=== PATIENT | female | born 1955 | race Hispanic/Latino ===

== ENCOUNTER 2020-09-03 08:19 | Outpatient (CLI) | payer MEDICARE | END 2020-09-03 08:20 | disposition home or self-care (01) | LOC: NAV RAD 08:19 | PROVIDERS: ATTEND Family Medicine | DX: M25.561 Pain in right knee (principal) ==

== ENCOUNTER 2022-04-07 12:56 | Outpatient (CLI) | payer OTHER | END 2022-04-07 12:57 | disposition home or self-care (01) | LOC: NAV RAD 12:56 | PROVIDERS: ATTEND Family Medicine | DX: S20.219A Contusion of unspecified front wall of thorax, initial encounter (principal); M25.521 Pain in right elbow | CPT/HCPCS: 71046 ==

== ENCOUNTER 2023-04-28 20:05 | Emergency (ER) | payer OTHER, MEDICAID | END 2023-04-28 21:05 | disposition home or self-care (01) | LOC: NAV ERS 20:05 | DX: S61.211A Laceration without foreign body of left index finger without damage to nail, initial encounter (principal); E11.9 Type 2 diabetes mellitus without complications; E78.00 Pure hypercholesterolemia, unspecified; I10 Essential (primary) hypertension; Z79.899 Other long term (current) drug therapy; W26.8XXA Contact with other sharp object(s), not elsewhere classified, initial encounter | CPT/HCPCS: 12042 ==

== ENCOUNTER 2023-05-06 13:31 | Emergency (ER) | payer OTHER, MEDICAID | END 2023-05-06 14:02 | disposition home or self-care (01) | LOC: NAV ERS 13:31 | DX: S61.211D Laceration without foreign body of left index finger without damage to nail, subsequent encounter (principal); E11.9 Type 2 diabetes mellitus without complications; I10 Essential (primary) hypertension; E78.00 Pure hypercholesterolemia, unspecified; Z79.899 Other long term (current) drug therapy; Z79.82 Long term (current) use of aspirin; Z79.84 Long term (current) use of oral hypoglycemic drugs; W26.0XXD Contact with knife, subsequent encounter ==